=== PATIENT | female | born 1990 | race Two or more races ===

== ENCOUNTER 2021-04-15 22:50 | Emergency (ER) | payer SELFPAY ==
[2021-04-15] MEDS ORDERED: Lactated Ringers 1,000 ML IV ONE (23:07)
[2021-04-15] MEDS ORDERED: Ondansetron 4 MG/2 ML SDV IVPUSH ONE (23:07)
--- NOTE | 2021-04-15 23:09 | EDM.PDOC ---
ED HPI GENERAL MEDICAL PROBLEM - General Chief Complaint: General Stated Complaint: VOMITTING, BODY SHAKES Time Seen by Provider: 04/15/21 22:57 Source of Information: Reports: Patient - History of Present Illness INITIAL COMMENTS - FREE TEXT/NARRATIVE: Patient presents with nausea vomiting . She states she is 8 weeks and over the last 13 days she is having a hard time getting out of bed because she is so weak. There is no diarrhea. No fever shortness of breath or respiratory complaints. Patient states that she gets these episodes where her whole body shakes and she gets a headache after vomiting. They're unclear whether not this could be panic attack related. Patient has had problems with anxiety in the past but this was many many years ago. Patient denies any pain with urination. No abdominal pain or vaginal bleeding. - Related Data Allergies Allergy/AdvReac Type Severity Reaction Status Date / Time No Known Allergies Allergy Verified 04/15/21 23:04 Home Meds: Home Meds 148/Iron/Folate 6/Dha [Tendera-Ob Softgel] 1 each PO DAILY 11/26/19 [History] Docusate Sodium [Colace] 100 mg PO BID PRN cap 11/27/19 [Rx] Ibuprofen [Motrin] 600 mg PO Q6H PRN tablet 11/27/19 [Rx] Ondansetron [Zofran ODT] 4 mg PO Q6H PRN #16 tab.dis 04/16/21 [Rx] Past Medical History Gastrointestinal History: Reports: Chronic Constipation [facility] History: Reports: Polycystic Ovaries, , Spontaneous Musculoskeletal History: Reports: Back Pain, Chronic (reports having chronic back pain, radiating to the rear of lower extremities, occasionally "shooting up") Psychiatric History: Reports: Anxiety, Depression Hematologic History: Reports: Anemia - Infectious Disease History Infectious Disease History: Reports: Chicken Pox, Mumps, Rubella, Shingles - Past Surgical History HEENT Surgical History: Reports: Other (See Below) Other HEENT Surgeries/Procedures: wisdom teeth Other GI Surgeries/Procedures: no constipation with this preg Social & Family History - Family History Family Medical History: No Pertinent Family History - Caffeine Use Caffeine Use: Reports: None ED ROS GENERAL - Review of Systems Review Of Systems: Comprehensive ROS is negative, except as noted in HPI. ED EXAM, GENERAL - Physical Exam Exam: See Below Free Text/Narrative:: CONSTITUTIONAL: well appearing in no acute distress SKIN: Warm, dry, and intact without rash HENT: Normocephalic, atraumatic, PULMONARY: clear to ausculation bilaterally. No rales, rhonchi, wheezing CARDIOVASCULAR: regular rate, No murmur, rubs, or gallops GASTROINTESTINAL: soft, nondistended, nontender NEUROLOGIC: normal speech, II-XII intact. light touch/5/5 power equal and symmetric in upper and lower extremities without deficit MUSCULOSKELETAL: no gross deformities, atraumatic PSYCHIATRIC: normal mood and affect Course - Vital Signs Text/Narrative:: Differential diagnosis: Dehydration, electrolyte abnormalities, GERD, hyperemesi s gravidarum, other Patient presents with nausea in as outlined above. Patient feeling better after antiemetics and fluids in the emergency department. Electrolytes within normal limits. Patient without abdominal pain or vaginal bleeding to warrant emergent ultrasound at this time. Remainder the work-up is effectively unremarkable. Supportive treatment with antiemetics, antacids as needed with PCP/[facility] follow-up Last Recorded V/S: Last Vital Signs Temp 36.2 C 04/15/21 22:56 Pulse 84 04/16/21 00:17 Resp 20 04/16/21 00:17 BP 110/73 04/16/21 00:17 Pulse Ox 98 04/16/21 00:17 - Orders/Labs/Meds Orders: Active Orders 24 hr Category Date Time Status Lactated Ringers [Ringers, Lactated] 1,000 ml Med 04/16/21 00:29 Ordered IV .BOLUS Labs: Laboratory Tests 04/15/21 04/15/21 04/15/21 Range/Units 23:10 23:17 23:17 WBC 12.88 H (4.0-11.0) K/uL RBC 4.56 (4.30-5.90) M/uL Hgb 14.5 (12.0-16.0) g/dL Hct 41.7 (36.0-46.0) % MCV 91.4 (80.0-98.0) fL MCH 31.8 (27.0-32.0) pg MCHC 34.8 (31.0-37.0) g/dL RDW Std Deviation 43.6 (28.0-62.0) fl RDW Coeff of Akash 13 (11.0-15.0) % Plt Count 267 (150-400) K/uL MPV 10.70 (7.40-12.00) fL Neut % (Auto) 61.1 (48.0-80.0) % Lymph % (Auto) 32.1 (16.0-40.0) % Lea % (Auto) 5.9 (0.0-15.0) % Eos % (Auto) 0.7 (0.0-7.0) % Baso % (Auto) 0.2 (0.0-1.5) % Neut # (Auto) 7.9 H (1.4-5.7) K/uL Lymph # (Auto) 4.1 H (0.6-2.4) K/uL Lea # (Auto) 0.8 (0.0-0.8) K/uL Eos # (Auto) 0.1 (0.0-0.7) K/uL Baso # (Auto) 0.0 (0.0-0.1) K/uL Nucleated RBC % 0.0 /100WBC Nucleated RBCs # 0 K/uL Sodium 137 (136-145) mmol/L Potassium 4.2 (3.5-5.1) mmol/L Chloride 102 (98-107) mmol/L Carbon Dioxide 25.3 (21.0-32.0) mmol/L BUN 11 (7.0-18.0) mg/dL Creatinine 0.7 (0.6-1.0) mg/dL Est Cr Clr Drug Dosing 92.94 mL/min Estimated GFR (MDRD) > 60.0 ml/min Glucose 98 (74-106) mg/dL Calcium 9.9 (8.5-10.1) mg/dL Total Bilirubin 0.2 (0.2-1.0) mg/dL AST 19 (15-37) IU/L ALT 67 H (14-63) IU/L Alkaline Phosphatase 83 (46-116) U/L Total Protein 7.7 (6.4-8.2) g/dL Albumin 3.7 (3.4-5.0) g/dL Globulin 4.0 (2.6-4.0) g/dL Albumin/Globulin Ratio 0.9 (0.9-1.6) Lipase 145 (73-393) U/L Urine Color YELLOW Urine Appearance CLEAR Urine pH 6.0 (5.0-8.0) Ur Specific Hedley 1.010 (1.001-1.035) Urine Protein NEGATIVE (NEGATIVE) mg/dL Urine Glucose (UA) NEGATIVE (NEGATIVE) mg/dL Urine Ketones NEGATIVE (NEGATIVE) mg/dL Urine Occult Blood NEGATIVE (NEGATIVE) Urine Nitrite NEGATIVE (NEGATIVE) Urine Bilirubin NEGATIVE (NEGATIVE) Urine Urobilinogen 0.2 (<2.0) EU/dL Ur Leukocyte Esterase NEGATIVE (NEGATIVE) Meds: Medications Discontinued Medications Generic Name Dose Route Start Last Admin Trade Name Freq PRN Reason Stop Dose Admin Calcium Carbonate/Glycine 500 mg 04/15/21 23:16 04/15/21 23:27 Calcium Carbonate 500 Mg Tab.Chew PO 04/15/21 23:17 500 mg NOW STA Administration Lactated Ringer's 1,000 mls @ 999 mls/hr 04/15/21 23:07 04/15/21 23:23 Ringers, Lactated IV 04/16/21 00:07 999 mls/hr .BOLUS ONE Administration Ondansetron HCl 4 mg 04/15/21 23:07 04/15/21 23:23 Ondansetron 4 Mg/2 Ml Sdv IVPUSH 04/15/21 23:08 4 mg ONETIME ONE Administration Departure - Departure Time of Disposition: 00:31 Disposition: Home, Self-Care 01 Condition: Good Clinical Impression: Hyperemesis gravidarum - Discharge Information Instructions: Hyperemesis Gravidarum Referrals: PCP,None [Primary Care Provider] - Forms: ED Department Discharge Additional Instructions: Return for fevers, abdominal pain, vaginal bleeding, inability to tolerate liquids, change or worsening condition or lack of improvement. Continue taking the Unisom and vitamin for nausea. Use Zofran if you need this above and beyond. You may take antacid for burning sensation from vomiting so much. Follow-up with primary care doctor and [facility] this coming week Sepsis Event Note (ED) - Focused Exam Vital Signs: Vital Signs Temp Pulse Resp BP Pulse Ox 04/16/21 00:17 84 20 110/73 98 04/15/21 23:25 78 18 104/70 98 04/15/21 22:56 36.2 C 86 18 124/83 98 - My Orders Last 24 Hours: My Active Orders 04/16/21 00:29 Lactated Ringers [Ringers, Lactated] 1,000 ml IV .BOLUS - Assessment/Plan Last 24 Hours: My Active Orders 04/16/21 00:29 Lactated Ringers [Ringers, Lactated] 1,000 ml IV .BOLUS
[2021-04-15] MEDS ORDERED: Calcium Carbonate 500 MG Tab.Chew PO STA (23:16)
[2021-04-15 23:38] LABS: BLOOD UREA NITROGEN,BUN 11 mg/dL (7.0-18.0); CARBON DIOXIDE,CO2 25.3 mmol/L (21.0-32.0); CHLORIDE,CL 102 mmol/L (98-107); GLUCOSE RANDOM 98 mg/dL (74-106); LIPASE 145 U/L (73-393); POTASSIUM,K 4.2 mmol/L (3.5-5.1); SODIUM,NA 137 mmol/L (136-145)
[2021-04-16] MEDS ORDERED: Lactated Ringers 1,000 ML IV ONE (00:29)
== END 2021-04-16 01:40 | disposition home or self-care (01) ==
LOC: MW.ED 22:50
DX: O21.0 Mild hyperemesis gravidarum (principal); Z3A.08 8 weeks gestation of pregnancy
CPT/HCPCS: 36415; 80053; 81003; 83690; 85025; 96374; 99284; A9270; J2405; J7120

== ENCOUNTER 2021-11-27 07:48 | Inpatient (IN) | payer SELFPAY ==
[2021-11-27] MEDS ORDERED: Butorphanol 1 MG/ML SDV IVPUSH PRN (08:02)
[2021-11-27] MEDS ORDERED: Sodium Chloride 0.9% 10 ML Syringe FLUSH PRN (08:02)
[2021-11-27] MEDS ORDERED: Lidocaine 1% 50 ML MDV INJECT PRN (08:02)
[2021-11-27] MEDS ORDERED: Misoprostol 200 MCG Tab PO PRN (08:02)
[2021-11-27] MEDS ORDERED: Carboprost Tromethamine 250 MCG/1 ML Amp IM PRN (08:02)
[2021-11-27] MEDS ORDERED: Sodium Chloride 0.9% 2.5 ML Syringe FLUSH PRN (08:02)
[2021-11-27] MEDS ORDERED: Sodium Chloride 0.9% 20 ML SDV IV PRN (08:02)
[2021-11-27] MEDS ORDERED: Water For Irrigation,Sterile 1,000 ML Container IRR PRN (08:02)
[2021-11-27] MEDS ORDERED: Methylergonovine 0.2 MG/1 ML Amp IM PRN (08:02)
[2021-11-27] MEDS ORDERED: Tranexamic Acid 1,000 MG in Sodium Chloride 0.9% 100 ML IV PRN (08:02)
[2021-11-27] MEDS: Lactated Ringers 1,000 ML IV SCH ×2 (08:07→08:40)
[2021-11-27] MEDS ORDERED: Oxytocin/0.9 % Sodium Chloride 30 UNIT/500 ML BAG IV SCH (08:15)
[2021-11-27] MEDS ORDERED: Ropivacaine 100 ML ONE (08:17)
[2021-11-27] MEDS ORDERED: ePHEDrine 50 MG/ML SDV IVPUSH PRN ×2 (08:25)
[2021-11-27] MEDS ORDERED: Ropivacaine 200 MG in Premix Bag 1 BAG EPIDUR SCH (08:30)
[2021-11-27] MEDS ORDERED: Bisacodyl 10 MG Supp RECTAL PRN (12:02)
[2021-11-27] MEDS ORDERED: Witch Hazel Medicated Pads 40/Jar TOP PRN (12:02)
[2021-11-27] MEDS ORDERED: Docusate Sodium 100 MG Cap PO PRN (12:02)
[2021-11-27] MEDS ORDERED: oxyCODONE 5 MG Tab PO PRN (12:02)
[2021-11-27] MEDS ORDERED: Benzocaine/Menthol 20%-0.5% Spray 78 GM Cannister TOP PRN (12:02)
[2021-11-27] MEDS ORDERED: Acetaminophen 500 MG Tab PO PRN ×2 (12:02)
[2021-11-27] MEDS ORDERED: Ibuprofen 400 MG Tab PO PRN (12:02)
[2021-11-27] MEDS ORDERED: Lanolin 100% Cream 7 GM Tube TOP PRN (12:02)
[2021-11-27] MEDS: Ibuprofen 800 MG Tab PO PRN ×2 (15:44→22:54)
[2021-11-28] MEDS: Ibuprofen 800 MG Tab PO PRN ×2 (07:54→13:58)
[2021-11-28 12:01] VITALS: BP 110/68; PULSE 91
== END 2021-11-28 14:35 | disposition home or self-care (01) | DRG 807 ==
LOC: MW.OBCHECK 07:48 → MW.OB 07:49 → MW.OBCHECK 08:52 → OBSVTOIN 12:02 → MW.OB 15:56
PROVIDERS: ADMIT Obstetrics & Gynecology; ATTEND Obstetrics & Gynecology
PROC: 10E0XZZ Delivery of Products of Conception, External Approach (ICD-10-PCS; principal; 2021-11-27)
PROC: 3E0R3BZ Introduction of Anesthetic Agent into Spinal Canal, Percutaneous Approach (ICD-10-PCS; 2021-11-27)
DX: O48.0 Post-term pregnancy (principal); Z37.0 Single live birth; Z3A.40 40 weeks gestation of pregnancy; O77.0 Labor and delivery complicated by meconium in amniotic fluid; O99.02 Anemia complicating childbirth; D64.9 Anemia, unspecified; Z20.822 Contact with and (suspected) exposure to COVID-19
CPT/HCPCS: 01967; 36415; 59025; 59409; 82803; 85014; 85018; 85027; 86592; 86850; 86900; 86901; A9270-GY; J2590; J2795; J7120; U0002

== ENCOUNTER 2024-08-18 09:40 | Inpatient (IN) | payer SELFPAY ==
[2024-08-18 10:40] LABS: BILIRUBIN,URINE NEGATIVE (NEGATIVE); GLUCOSE,URINE NEGATIVE (NEGATIVE); KETONES,URINE NEGATIVE (NEGATIVE); LEUKOCYTE ESTERASE,URINE TRACE (NEGATIVE); NITRITE,URINE NEGATIVE (NEGATIVE); OCCULT BLOOD,URINE LARGE (NEGATIVE); PROTEIN,URINE 30 mg/dL (NEGATIVE); UROBILINOGEN,URINE 0.2 EU/dL (<2.0)
[2024-08-18] MEDS ORDERED: Lidocaine 1% 50 ML MDV INJECT PRN (10:46)
[2024-08-18] MEDS ORDERED: Tranexamic Acid in NACL,ISO-OS 1,000 MG in Premix Bag 1 BAG IV PRN (10:46)
[2024-08-18] MEDS ORDERED: Butorphanol 2 MG/ML SDV IVPUSH PRN (10:46)
[2024-08-18] MEDS ORDERED: Carboprost Tromethamine 250 MCG/1 mL Vial IM PRN ×2 (10:46→16:27)
[2024-08-18] MEDS ORDERED: Sodium Chloride 0.9% 10 ML Syringe FLUSH PRN ×4 (10:46→16:27)
[2024-08-18] MEDS ORDERED: Water For Irrigation,Sterile 1,000 ML Container IRR PRN (10:46)
[2024-08-18] MEDS ORDERED: Sodium Chloride 0.9% 20 ML SDV IV PRN ×2 (10:46→13:17)
[2024-08-18] MEDS ORDERED: Methylergonovine 0.2 MG/1 ML Amp IM PRN (10:46)
[2024-08-18] MEDS ORDERED: Sodium Chloride 0.9% 2.5 ML Syringe FLUSH PRN ×3 (10:46→16:27)
[2024-08-18 10:47] LABS: APPEARANCE,URINE CLOUDY; COLOR,URINE ORANGE
[2024-08-18] MEDS ORDERED: Ondansetron 4 MG/2 ML SDV IVPUSH PRN ×4 (10:48→16:27)
[2024-08-18] MEDS ORDERED: Misoprostol 100 MCG Tab RECTAL PRN (10:48)
[2024-08-18] MEDS ORDERED: Labetalol 100 MG/20 ML MDV IVPUSH PRN (10:59)
[2024-08-18] MEDS ORDERED: Oxytocin/0.9 % Sodium Chloride 30 UNIT/500 ML BAG IV SCH ×3 (11:00→16:30)
[2024-08-18] MEDS ORDERED: Lactated Ringers 1,000 ML IV SCH ×2 (11:00→13:30)
[2024-08-18] MEDS ORDERED: Lidocaine 1% 2 ML ONE (11:27)
[2024-08-18 11:39] LABS: HEMATOCRIT 39.1 % (37.0-47.0); HEMOGLOBIN 12.9 g/dL (12.0-16.0); MEAN CORPUSCULAR HEMOGLOBIN 29.9 pg (28.0-32.0); MEAN CORPUSCULAR VOLUME 90.7 fL (83.0-99.0); MEAN PLATELET VOLUME 11.2 fL (9.4-12.3); PLATELET COUNT,PLT 229 K/uL (150-400); RED BLOOD CELL COUNT 4.31 M/uL (4.10-5.30); WHITE BLOOD CELL COUNT,WBC 9.29 K/uL (3.9-11.3)
[2024-08-18 12:07] LABS: A/G RATIO 0.5 (0.9-1.6); ALBUMIN 2.3 g/dL (3.4-5.0); BILIRUBIN TOTAL 0.2 mg/dL (0.2-1.0); CALCIUM 9.6 mg/dL (8.5-10.1); CARBON DIOXIDE,CO2 19.6 mmol/L (21.0-32.0); CREATININE 0.6 mg/dL (0.6-1.0); EST CRCL DRUG DOSING (CG) 105.48 mL/min; PROTEIN TOTAL,TP 7.3 g/dL (6.4-8.2)
[2024-08-18 12:23] LABS: CREATININE,URINE RAND 60.2 mg/dL; PROTEIN CREATININE RATIO,URINE 1.2; PROTEIN,URINE RANDOM 71.2 mg/dL (<11.9)
[2024-08-18] MEDS ORDERED: Citric Acid/Sodium Citrate Solution 30 ML Cup PO ONE (13:17)
[2024-08-18] MEDS ORDERED: fentaNYL 100 MCG/2 ML SDV ONE (13:37)
[2024-08-18] MEDS ORDERED: ceFAZolin 1 GM Vial ONE (13:37)
[2024-08-18] MEDS ORDERED: Ketorolac 30 MG/ML SDV ONE (13:37)
[2024-08-18] MEDS ORDERED: EPINEPHrine 1 MG/1 ML Amp ONE (13:37)
[2024-08-18] MEDS ORDERED: Ropivacaine 0.5% 5 MG/ML 30 ML SDV ONE (13:37)
[2024-08-18] MEDS ORDERED: Ondansetron 4 MG/2 ML SDV ONE (13:37)
[2024-08-18] MEDS ORDERED: Morphine PF 10 MG/10 ML SDV ONE (13:37)
[2024-08-18] MEDS ORDERED: Oxytocin 10 Units/1 ML SDV ONE (13:37)
[2024-08-18] MEDS ORDERED: Bupivacaine 0.25% 30 ML SDV ONE (13:37)
[2024-08-18] MEDS ORDERED: Azithromycin 500 MG Vial ONE (13:39)
[2024-08-18] MEDS ORDERED: Tranexamic Acid 1,000 MG/10 ML Vial ONE (14:04)
[2024-08-18] MEDS ORDERED: Phenylephrine HCl In 0.9% NaCl 1 MG/10 ML Syringe ONE (14:13)
[2024-08-18] MEDS ORDERED: diphenhydrAMINE 50 MG/ML SDV IVPUSH PRN (15:27)
[2024-08-18] MEDS ORDERED: Albuterol 0.083% 2.5 MG/3 ML Neb Soln NEB PRN (15:27)
[2024-08-18] MEDS ORDERED: fentaNYL 50 MCG/ML SDV IVPUSH PRN (15:27)
[2024-08-18] MEDS ORDERED: Acetaminophen/oxyCODONE 325-5 MG Tab PO PRN (15:27)
[2024-08-18] MEDS ORDERED: HYDROmorphone 1 MG/ML Syringe IVPUSH PRN (15:27)
[2024-08-18] MEDS ORDERED: Nalbuphine 10 MG/1 ML Vial IVPUSH PRN (15:27)
[2024-08-18] MEDS ORDERED: fentaNYL 100 MCG/2 ML SDV IVPUSH PRN (15:27)
[2024-08-18] MEDS ORDERED: Phenylephrine HCl In 0.9% NaCl 1 MG/10 ML Syringe IVPUSH PRN (15:27)
[2024-08-18] MEDS ORDERED: Metoclopramide 10 MG/2 ML SDV IVPUSH PRN (15:27)
[2024-08-18] MEDS ORDERED: Morphine 2 MG/ML SYRINGE IVPUSH PRN (15:27)
[2024-08-18] MEDS ORDERED: Naloxone 0.4 MG/ML SDV IVPUSH PRN (15:27)
[2024-08-18] MEDS ORDERED: Misoprostol 200 MCG Tab RECTAL PRN (16:27)
[2024-08-18] MEDS ORDERED: oxyCODONE 5 MG Tab PO PRN (16:27)
[2024-08-18] MEDS: Acetaminophen 1,000 MG in Premix Bag 1 BAG IV SCH (16:43)
[2024-08-18 17:17] LABS: PH,UMBILICAL ARTERIAL 7.18 (7.18-7.38); PH,UMBILICAL VENOUS 7.212 (7.25-7.45)
[2024-08-18] MEDS: Ketorolac 30 MG/ML SDV IVPUSH SCH (19:57)
[2024-08-18] MEDS: metroNIDAZOLE 250 MG Tab PO SCH (21:58)
[2024-08-18] MEDS: Cephalexin 500 MG Cap PO SCH (22:11)
[2024-08-18] MEDS: Docusate Sodium 100 MG Cap PO SCH (22:11)
[2024-08-19 06:29] LABS: BASOPHILS ABSOLUTE AUTO 0.02 K/uL (0.00-0.20); BASOPHILS PERCENT AUTO 0.2 % (0.0-1.0); HEMATOCRIT 37.2 % (37.0-47.0); HEMOGLOBIN 12.2 g/dL (12.0-16.0); IMMATURE GRAN ABSOLUTE AUTO 0.07 K/uL (0.00-0.05); IMMATURE GRAN PERCENT AUTO 0.5 % (0.0-0.4); LYMPHOCYTES ABSOLUTE AUTO 1.99 K/uL (1.00-4.80); LYMPHOCYTES PERCENT AUTO 15.3 % (24.0-44.0); MEAN CORPUSCULAR HEMOGLOBIN 29.9 pg (28.0-32.0); MEAN CORPUSCULAR HGB CONC 32.8 g/dL (32.0-36.0); MEAN CORPUSCULAR VOLUME 91.2 fL (83.0-99.0); MEAN PLATELET VOLUME 11.2 fL (9.4-12.3); MONOCYTES ABSOLUTE AUTO 0.53 K/uL (0.00-0.80); MONOCYTES PERCENT AUTO 4.1 % (0.0-8.0); NEUTROPHILS ABSOLUTE AUTO 10.39 K/uL (1.80-7.70); NEUTROPHILS PERCENT AUTO 79.9 % (41.0-71.0); PLATELET COUNT,PLT 235 K/uL (150-400); RED BLOOD CELL COUNT 4.08 M/uL (4.10-5.30)
[2024-08-19] MEDS ORDERED: oxyCODONE 5 MG Tab PO PRN (16:27)
[2024-08-19] MEDS: Acetaminophen 500 MG Tab PO SCH (17:47)
[2024-08-19] MEDS: Ibuprofen 800 MG Tab PO SCH (21:31)
[2024-08-20] MEDS: Diphtheria,Pertussis(Acell),Tetanus Vaccine 0.5 ML Syringe IM ONE (08:50)
[2024-08-20] MEDS: Azithromycin 500 MG in Sodium Chloride 0.9% 250 ML IV ONE (08:50)
[2024-08-20] MEDS: ceFAZolin 2 GM in Sodium Chloride 0.9% 50 ML IV ONE (08:50)
[2024-08-20] MEDS: Tranexamic Acid in NACL,ISO-OS 1,000 MG in Premix Bag 1 BAG IV ONE (08:50)
[2024-08-20] MEDS: Measles, Mumps & Rubella Vaccine 0.5 ML SDV SUBCUT ONE (08:51)
[2024-08-20] MEDS: Methylergonovine 0.2 MG/1 ML Amp IM ONE (08:51)
[2024-08-20 11:55] LABS: MEAN CORPUSCULAR HEMOGLOBIN 30.6 pg (28.0-32.0); MEAN CORPUSCULAR HGB CONC 33.3 g/dL (32.0-36.0); MEAN CORPUSCULAR VOLUME 91.7 fL (83.0-99.0); PLATELET COUNT,PLT 198 K/uL (150-400); WHITE BLOOD CELL COUNT,WBC 9.89 K/uL (3.9-11.3)
[2024-08-20 12:23] LABS: A/G RATIO 0.4 (0.9-1.6); ALBUMIN 1.8 g/dL (3.4-5.0); BILIRUBIN TOTAL 0.2 mg/dL (0.2-1.0); CALCIUM 8.8 mg/dL (8.5-10.1); CARBON DIOXIDE,CO2 23.5 mmol/L (21.0-32.0); CREATININE 0.6 mg/dL (0.6-1.0); EST CRCL DRUG DOSING (CG) 105.48 mL/min; POTASSIUM,K 3.9 mmol/L (3.5-5.1); PROTEIN TOTAL,TP 6.2 g/dL (6.4-8.2)
[2024-08-20 15:15] VITALS: BP 126/71; PULSE 80
== END 2024-08-20 15:52 | disposition home or self-care (01) | DRG 788 ==
LOC: MW.OBCHECK 09:40 → MW.OB 09:41 → MW.OBCHECK 10:35 → MW.OB 10:35 → OBSVTOIN 14:26 → MW.OB 17:17
PROVIDERS: ADMIT Obstetrics & Gynecology; ATTEND Obstetrics & Gynecology
PROC: 10D00Z1 Extraction of Products of Conception, Low, Open Approach (ICD-10-PCS; principal; 2024-08-18 13:45)
DX: O14.94 Unspecified pre-eclampsia, complicating childbirth (principal); O32.2XX0 Maternal care for transverse and oblique lie, not applicable or unspecified; O42.02 Full-term premature rupture of membranes, onset of labor within 24 hours of rupture; O99.214 Obesity complicating childbirth; Z37.0 Single live birth; Z3A.39 39 weeks gestation of pregnancy
CPT/HCPCS: 01961; 36415; 51702; 59025; 59514; 64488; 76805; 76805-26; 80053; 81003; 82570; 82803; 84112; 84156; 85025; 85027; 86592; 86850; 86900; 86901; A9270-GY; J0131; J0171; J0456; J0665; J0690; J1100; J1885; J2274; J2371; J2405; J2590; J2795; J3010; J3490